=== PATIENT | female | born 1965 | race Caucasian/White ===

== ENCOUNTER 2018-01-24 22:54 | Emergency (ER) | END 2018-01-25 04:43 | disposition home or self-care (01) ==

== ENCOUNTER 2018-08-24 16:54 | Observation (INO) | payer OTHER ==
[~2018-08-24] VITALS: Ht 157.5 cm; Wt 83.5 kg
[~2018-08-24 16:54] MED LIST: IBUP-1542 PO
[2018-08-24] MEDS ORDERED: NITROGLYCERIN 2% 1 GM OINT PKT TD STA (17:30)
[2018-08-24] MEDS ORDERED: ASPIRIN 325 MG TAB PO STA (17:30)
[2018-08-24] MEDS ORDERED: morphine 4 MG/ML VIAL IV STA ×2 (17:30→21:50)
[2018-08-24] MEDS ORDERED: ONDANSETRON 4 MG INJ IV STA ×2 (17:30→21:50)
--- NOTE | 2018-08-24 21:29 | ERD ---
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 She states that she is having arrhythmia but uncertain etiology. She is seeing Dr. Thompson in the past for this and they have been unable to catch the rhythm. She had a cardiac work-up because she is having chest pain with her tachycardia. She says she had a treadmill stress test about a month and a half ago that was normal. She said that today however she had some substernal chest pressure with her tachycardia and she took a sublingual nitroglycerin x3 that did not relieve her pain. She says the pain was worse has been before and she is never had episodes where it did not go away with one nitro. She did not have a nuclear stress test she tells me or a cardiac cath ROS All systems reviewed and are negative except as per history of present illness. Medications Home Meds Reported Medications Ibuprofen* (Ibuprofen*) 600 Mg Tablet, 600 MG PO Q6H PRN for PAIN LEVEL 1-5, TAB 01/25/18 Allergies Allergies: Coded Allergies: No Known Allergy (Unverified , 01/25/18) PMhx/Soc Medical and Surgical Hx: pt denies Surgical Hx History of Surgery: No Anesthesia Reaction: No Hx Neurological Disorder: No Hx Respiratory Disorders: No Hx Cardiac Disorders: Yes (ARRYTHMIA) Hx Psychiatric Problems: No Hx Miscellaneous Medical Probl: No Hx Alcohol Use: Yes (social) Hx Substance Use: No Hx Tobacco Use: No Smoking Status: Never smoker FmHx Family History: No coronary disease Physical Exam Vitals Vital Signs Date Temp Pulse Resp B/P (MAP) Pulse Ox O2 O2 Flow FiO2 Time Delivery Rate 08/24/18 70 26 133/78 98 Room Air 18:42 (96) 08/24/18 Nasal 2 17:57 Cannula 08/24/18 99.1 81 18 165/79 99 17:00 (107) Physical Exam Const: Well-developed, well-nourished Head: Atraumatic, normocephalic Eyes: Normal Conjunctiva, PERRLA, EOMI, normal sclera, no nystagmus ENT: Normal External Ears, Nose and Mouth, moist mucus membranes. Neck: Full range of motion. No meningismus, no lymphadenopathy. Resp: Clear to auscultation bilaterally, no wheezing, rhonchi, rales Cardio: Regular rate and rhythm, no murmurs, S1 S2 present Abd: Soft, non tender x 4, non distended. Normal bowel sounds, no guarding or rebound, no pulsitile abdominal masses or bruits Skin: No petechiae or rashes, no ecchymosis , no maculopapular rash Back: No midline or flank tenderness Ext: No cyanosis, or edema, FROM x 4, normal inspection, neurovascularly intact x 4 Neur: Awake and alert, STR 5/5 x 4, sensation intact x 4, no focal findings, cerebellum intact Psych: Normal Mood and Affect Result Diagram: 08/24/18 1738 08/24/18 1738 Results 24 hrs Laboratory Tests Test 08/24/18 17:38 White Blood Count 8.1 10^3/ul Red Blood Count 4.53 10^6/ul Hemoglobin 12.2 g/dl Hematocrit 37.1 % Mean Corpuscular Volume 81.9 fl Mean Corpuscular Hemoglobin 26.9 pg Mean Corpuscular Hemoglobin Concent 32.9 g/dl Red Cell Distribution Width 13.8 % Platelet Count 278 10^3/UL Mean Platelet Volume 9.2 fl Immature Granulocytes % 0.200 % Neutrophils % 52.8 % Lymphocytes % 38.9 % Monocytes % 6.6 % Eosinophils % 0.9 % Basophils % 0.6 % Nucleated Red Blood Cells % 0.0 /100WBC Immature Granulocytes # 0.020 10^3/ul Neutrophils # 4.3 10^3/ul Lymphocytes # 3.2 10^3/ul Monocytes # 0.5 10^3/ul Eosinophils # 0.1 10^3/ul Basophils # 0.1 10^3/ul Nucleated Red Blood Cells # 0.0 10^3/ul Sodium Level 144 mmol/L Potassium Level 3.5 mmol/L Chloride Level 108 mmol/L Carbon Dioxide Level 25 mmol/L Anion Gap 11 Blood Urea Nitrogen 13 mg/dl Creatinine 0.68 mg/dl Est Glomerular Filtrat Rate mL/min > 60 mL/min Glucose Level 117 mg/dl Calcium Level 9.0 mg/dl Total Bilirubin 0.3 mg/dl Direct Bilirubin 0.00 mg/dl Indirect Bilirubin 0.3 mg/dl Aspartate Amino Transf (AST/SGOT) 25 IU/L Alanine Aminotransferase (ALT/SGPT) 25 IU/L Alkaline Phosphatase 106 IU/L Troponin I < 0.012 ng/ml B-Type Natriuretic Peptide 54 PG/ML Total Protein 7.9 g/dl Albumin 4.3 g/dl Globulin 3.60 g/dl Albumin/Globulin Ratio 1.19 Current Medications Medications Dose Sig/Farshad Start Time Status Last (Trade) Ordered Route PRN Stop Time Admin Dose Reason Admin Aspirin 325 mg ONCE STAT 08/24/18 DC 08/24/18 (Aspirin) PO 17:30 08/24/18 18:10 17:31 1 inch ONCE STAT 08/24/18 DC 08/24/18 Nitroglycerin TD 17:30 08/24/18 18:10 17:31 (Nitroglyceri n 2% Oint) Morphine 4 mg ONCE STAT 08/24/18 DC Sulfate IV 17:30 08/24/18 (morphine) 17:31 Ondansetron 4 mg ONCE STAT 08/24/18 DC HCl (Zofran IV 17:30 08/24/18 Inj) 17:31 Procedures/MDM EKG: Rate/Rhythm: Normal Sinus Rhythm,NL intervals QRS, ST, QT: NORMAL [place], QRS, QT] Impression: NORMAL EKG [place] [id number] Radiology Main Line: [phone] DIAGNOSTIC IMAGING REPORT Patient: RAMONE ARECHIGA : 1965 Age: 53 Sex: F MR #: [id number] DOS: 08/24/18 1730 Ordering MD: JEFFERY AYON DO Location: E/R Room/Bed: PROCEDURE: XR Chest AP portable CLINICAL INDICATION: Chest pain TECHNIQUE: An AP portable radiograph of the chest was submitted. COMPARISON: 01/25/2018 FINDINGS: Support Hardware: None Cardiovascular: The cardiovascular silhouette appears unremarkable. Lung Caraballo: The lung caraballo appear clear with no nodule, alveolar infiltrate, or interstitial prominence evident. Pleural Spaces: No pneumothorax or pleural effusion is identified. Osseous Structures: The osseous structures appear intact. Soft Tissues: The soft tissues appear generous. IMPRESSION: Stable and unremarkable portable chest. Christian Moore Physician Date Time Electronically viewed and signed by Christian Moore Physician on 08/24/2018 17:49 RH/ CC: JEFFERY AYON DO [id number] The patient is having worsening symptoms of angina with no relief with nitro. She had a negative treadmill stress test only , She is also getting more symptomatic. I will admit her to the hospital for cardiac work-up. Cardiac Admit MDM: Patient's symptoms are concerning for cardiac cause will require inpatient workup and continuous monitoring. Further w/u for ischemia, arrhythmia, PE or dissection will be deferred to the inpatient team. Departure Diagnosis: Primary Impression: Chest pain Chest pain type: unspecified Qualified Codes: R07.9 - Chest pain, unspecified Condition: Stable JEFFERY AYON DO Aug 24, 2018 21:29
[2018-08-24] MEDS ORDERED: ACETAMINOPHEN 325 MG TAB PO PRN ×2 (22:00)
[2018-08-24] MEDS ORDERED: DOCUSATE SODIUM 100 MG CAP PO PRN (22:00)
[2018-08-24] MEDS ORDERED: NACL 0.9% 3 ML SYG IV SCH (22:00)
[2018-08-24] MEDS ORDERED: MAGNESIUM HYDROXIDE 30ML CUP PO PRN (22:00)
[2018-08-24] MEDS ORDERED: morphine 2 MG INJ IV PRN (22:00)
[2018-08-24] MEDS ORDERED: HYDROCODONE/APAP (5/325) TAB PO PRN (22:00)
[2018-08-24] MEDS ORDERED: LORAZEPAM 2 MG INJ IV PRN (22:00)
[2018-08-24] MEDS ORDERED: NITROGLYCERIN (SL) 0.4 MG TAB SL PRN (22:00)
[2018-08-24] MEDS ORDERED: ALBUTEROL/IPRATROPIUM (NEB) 3 ML AMP HHN PRN (22:00)
[2018-08-24] MEDS ORDERED: ONDANSETRON 4 MG INJ IV PRN ×2 (22:00)
[2018-08-24] MEDS ORDERED: hydrALAzine 20 MG INJ IV PRN (22:00)
[2018-08-24 22:38] VITALS: PULSE 66
[2018-08-24 22:59] VITALS: Ht 157.5 cm; Wt 83.5 kg
[2018-08-24] MEDS: SOD CHLORIDE 0.45% 1,000 ML IV SCH (23:14)
[2018-08-25] VITALS (10 sets, daily range): BP systolic 109–127; BP diastolic 56–73; PULSE 57–86; RESP 17–19
--- NOTE | 2018-08-25 01:55 | HP ---
DATE OF ADMISSION: 08/24/2018 IDENTIFICATION: This is a 53-year-old female. CHIEF COMPLAINT: Chest pain and dizziness. 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 The patient states she has been having some chest pain, substernal in nature that occurred earlier today around noon. She believes she also had tachy cardia. She took a nitroglycerin at home x3, which did not relieve her symptoms. This pain seemed t o be worsened pain she has had in the past. No prior history of any stroke or heart attack. No pres ent upper or lower GI bleeding, nausea, vomiting, fevers or chills, diarrhea or constipation. She di d complain of some dizziness, but no loss of consciousness. Apparently as an outpatient with a cardi ologist, she had a cardiac workup because of her prior symptoms including stress test about a month a nd half ago that according to the patient was normal. PAST MEDICAL HISTORY: As above. ALLERGIES: NO KNOWN DRUG ALLERGIES. HOME MEDICATIONS: Ibuprofen 600 mg q.6 p.r.n., and nitroglycerin p.r.n. PAST SURGICAL HISTORY: Apparently none. SOCIAL HISTORY: Negative for smoking, drinking, or IV drug abuse. FAMILY HISTORY: Noncontributory. PHYSICAL EXAMINATION: VITAL SIGNS: T-max 99.1, pulse 70 to 81, respirations 18 to 26, blood pressure 165 to 133 systolic o melisa 79 to 78 diastolic. Satting at 98% room air. GENERAL: The patient is lying in bed, answering questions appropriately. No acute distress. HEENT: Pupils equal, round, reactive to light. Extraocular muscles intact. NECK: Supple, no thyromegaly. LUNGS: Clear to auscultation bilaterally. CARDIOVASCULAR: S1, S2 heard. No rubs or gallops. ABDOMEN: Soft, nontender, nondistended. Normal bowel sounds. No rebound or guarding. MUSCULOSKELETAL: No lower extremity edema bilaterally. NEUROLOGIC: No focal deficits. LABORATORIES: CBC is completely normal. Comprehensive metabolic panel is normal. Troponin is negat oanh x1. Chest x-ray did not show any acute findings. ASSESSMENT AND PLAN: A 53-year-old female coming in with chest pain symptoms, prior history of arrhy thmia and sees a environmental engineering technician as an outpatient. 1. Chest pain. Again, rule out for acute coronary syndrome versus other source such as possible. musculoskeletal source. The patient does have history of arrhythmia. So, we admit the patient and t rend her troponins q.6 hours x2 more. Put on aspirin, morphine, oxygen, nitroglycerin. Consider aneesh cking a 2D echocardiogram, get a cardiology consult, check TSH, A1c, lipid panel. 2. History of arrhythmia. The patient will be monitored on telemetry floor. Presently, heart rate is stable. 3. Deep venous thrombosis prophylaxis, heparin subcutaneously. Dictated By: GERRI TRAVIS/VANESSA Conf#: [id number] DID#: [id number]
[2018-08-25] MEDS ORDERED: POTASSIUM CHLORIDE (SR) 20 MEQ TAB PO STA (09:01)
[2018-08-25] MEDS: HEPARIN 5,000 UNIT/1 ML VIAL SC SCH ×2 (09:02→21:17)
[2018-08-25] MEDS: ASPIRIN (EC) 325 MG TAB PO SCH (09:05)
[2018-08-25] MEDS: SOD CHLORIDE 0.45% 1,000 ML IV SCH (11:29)
--- NOTE | 2018-08-25 13:43 | PN ---
Date/Time of Note Date/Time of Note DATE: 08/25/18 TIME: 13:39 Assessment/Plan VTE Prophylaxis Risk score (from [facility])>0 risk: 2 SCD applied (from [facility]): Yes Pharmacological prophylaxis: NA/contraindicated Pharm contraindication: low risk/ambulating Lines/Catheters IV [facility] Peripheral IV Assessment/Plan Assessment/Plan 1. Acute chest pain - serial troponins negative - followed by Dr. Thompson as outpatient and consultation placed - ECHO ordered 2. h/o arrhythmia - current in sinus rhythm 3. hypokalemia - replaced 4. Headache - appears positional - supportive care 5. Disposition - Pending cardiology consultation. Plan of care based on improvement of symptoms and cardiology recommendations. Result Diagram: 08/25/1842908/25/18429 Results 24hrs Laboratory Tests Test 08/24/18 17:38 08/24/18 22:00 08/25/18 04:30 White Blood Count 8.1 8.2 Red Blood Count 4.53 4.01 L Hemoglobin 12.2 10.6 L Hematocrit 37.1 33.2 L Mean Corpuscular Volume 81.9 L 82.8 Mean Corpuscular Hemoglobin 26.9 L 26.4 L Mean Corpuscular Hemoglobin Concent 32.9 31.9 L Red Cell Distribution Width 13.8 14.0 Platelet Count 278 254 Mean Platelet Volume 9.2 9.4 Immature Granulocytes % 0.200 0.400 Neutrophils % 52.8 52.6 Lymphocytes % 38.9 38.3 Monocytes % 6.6 6.8 Eosinophils % 0.9 1.3 Basophils % 0.6 0.6 Nucleated Red Blood Cells % 0.0 0.0 Immature Granulocytes # 0.020 0.030 Neutrophils # 4.3 4.3 Lymphocytes # 3.2 H 3.1 H Monocytes # 0.5 0.6 Eosinophils # 0.1 0.1 Basophils # 0.1 0.1 Nucleated Red Blood Cells # 0.0 0.0 Sodium Level 144 140 Potassium Level 3.5 3.5 Chloride Level 108 108 Carbon Dioxide Level 25 25 Anion Gap 11 7 Blood Urea Nitrogen 13 11 Creatinine 0.68 0.66 Est Glomerular Filtrat Rate mL/min > 60 > 60 Glucose Level 117 92 Calcium Level 9.0 8.7 Total Bilirubin 0.3 Direct Bilirubin 0.00 Indirect Bilirubin 0.3 Aspartate Amino Transf (AST/SGOT) 25 Alanine Aminotransferase (ALT/SGPT) 25 Alkaline Phosphatase 106 Troponin I < 0.012 < 0.012 < 0.012 B-Type Natriuretic Peptide 54 Total Protein 7.9 Albumin 4.3 Globulin 3.60 H Albumin/Globulin Ratio 1.19 Creatine Kinase 39 33 Creatine Kinase Index 0.6 0.7 Creatinine Kinase MB (Mass) < 0.22 < 0.22 Free Thyroxine 1.06 Hemoglobin A1c 5.6 Phosphorus Level 4.2 Magnesium Level 2.2 Triglycerides Level 274 H Cholesterol Level 173 LDL Cholesterol, Calculated 83 HDL Cholesterol 35 L Cholesterol/HDL Ratio 4.9 Thyroid Stimulating Hormone (TSH) 3.900 Subjective 24 Hr Interval Summary Free Text/Dictation Patient states her chest pain has improved since admission. Complaining of discomfort occipital area but does get relief when changes positions. Also with discomfort at site of IV insertion in L hand. Exam/Review of Systems Exam Vitals Vital Signs Date Temp Pulse Resp B/P (MAP) Pulse Ox O2 O2 Flow FiO2 Time Delivery Rate 08/25/18 98.0 73 18 121/60 98 12:31 (80) 08/24/18 Room Air 21:42 08/24/18 2 17:57 Intake and Output 08/24/18 08/24/18 08/25/18 1515:00 23:00 07:00 IntakeIntake Total 640 ml BalanceBalance 640 ml Exam General: no acute distress. answering questions appropriately Neck: supple Chest: nontender CVS: S1, S2, regular rate and rhythm. no murmurs Lungs: clear to auscultation bilaterally. no wheezing or rhonchi Abd: soft, nontender, nondistended. no rebound or guarding. bowel sounds present diffusely Ext: moving all extremities. no cyanosis, clubbing, or edema Results Results 24hrs Laboratory Tests Test 08/24/18 17:38 08/24/18 22:00 08/25/18 04:30 White Blood Count 8.1 8.2 Red Blood Count 4.53 4.01 L Hemoglobin 12.2 10.6 L Hematocrit 37.1 33.2 L Mean Corpuscular Volume 81.9 L 82.8 Mean Corpuscular Hemoglobin 26.9 L 26.4 L Mean Corpuscular Hemoglobin Concent 32.9 31.9 L Red Cell Distribution Width 13.8 14.0 Platelet Count 278 254 Mean Platelet Volume 9.2 9.4 Immature Granulocytes % 0.200 0.400 Neutrophils % 52.8 52.6 Lymphocytes % 38.9 38.3 Monocytes % 6.6 6.8 Eosinophils % 0.9 1.3 Basophils % 0.6 0.6 Nucleated Red Blood Cells % 0.0 0.0 Immature Granulocytes # 0.020 0.030 Neutrophils # 4.3 4.3 Lymphocytes # 3.2 H 3.1 H Monocytes # 0.5 0.6 Eosinophils # 0.1 0.1 Basophils # 0.1 0.1 Nucleated Red Blood Cells # 0.0 0.0 Sodium Level 144 140 Potassium Level 3.5 3.5 Chloride Level 108 108 Carbon Dioxide Level 25 25 Anion Gap 11 7 Blood Urea Nitrogen 13 11 Creatinine 0.68 0.66 Est Glomerular Filtrat Rate mL/min > 60 > 60 Glucose Level 117 92 Calcium Level 9.0 8.7 Total Bilirubin 0.3 Direct Bilirubin 0.00 Indirect Bilirubin 0.3 Aspartate Amino Transf (AST/SGOT) 25 Alanine Aminotransferase (ALT/SGPT) 25 Alkaline Phosphatase 106 Troponin I < 0.012 < 0.012 < 0.012 B-Type Natriuretic Peptide 54 Total Protein 7.9 Albumin 4.3 Globulin 3.60 H Albumin/Globulin Ratio 1.19 Creatine Kinase 39 33 Creatine Kinase Index 0.6 0.7 Creatinine Kinase MB (Mass) < 0.22 < 0.22 Free Thyroxine 1.06 Hemoglobin A1c 5.6 Phosphorus Level 4.2 Magnesium Level 2.2 Triglycerides Level 274 H Cholesterol Level 173 LDL Cholesterol, Calculated 83 HDL Cholesterol 35 L Cholesterol/HDL Ratio 4.9 Thyroid Stimulating Hormone (TSH) 3.900 Medications Medication Current Medications IV Flush (NS 3 ml) 3 ml PER PROTOCOL IV ; Start 08/24/18 at 22:00 Ondansetron HCl (Zofran Inj) 4 mg Q6H PRN IV NAUSEA/VOMITING; Start 08/24/18 at 22:00 Acetaminophen (Tylenol Tab) 650 mg Q6H PRN PO .PAIN 1-3 OR TEMP; Start 08/24/18 at 22:00 Acetaminophen/ Hydrocodone Bitart ([place] (5/325)) 1 tab Q6H PRN PO .MOD PAIN 4- 6; Start 08/24/18 at 22:00 Morphine Sulfate (morphine) 2 mg Q4H PRN IV .SEVERE PAIN 7-10 Last administered on 08/25/18 09:13; Admin Dose 2 MG; Start 08/24/18 at 22:00 Docusate Sodium (Colace) 100 mg Q12H PRN PO .CONSTIPATION; Start 08/24/18 at 22:00 Magnesium Hydroxide (Milk Of Mag) 30 ml DAILY PRN PO .CONSTIPATION; Start 08/24 at 22:00 Heparin Sodium (Porcine) (Heparin (5000 Units/1ml)) 5,000 unit Q12 SC Last administered on 08/25/18at 09:02; Admin Dose 5,000 UNIT; Start 08/25/18 at 09:00 Sodium Chloride 1,000 ml @ 75 mls/hr [id number] IV Last administered on 08/25/18at 11:29; Admin Dose 75 MLS/HR; Start 08/24/18 at 21:40 Lorazepam (Ativan) 0.5 mg Q6H PRN IV ANXIETY; Start 08/24/18 at 22:00 Albuterol/ Ipratropium (Duoneb) 3 ml Q4H RESP THERAPY PRN HHN SHORTNESS OF BREATH; Start 08/24/18 at 22:00 Hydralazine HCl (Apresoline) 10 mg Q6H PRN IV ELEVATED BLOOD PRESSURE; Start 08/24/18 at 22:00 Clonidine (Catapres) 0.1 mg Q6H PRN PO ELEVATED BLOOD PRESSURE; Start 08/24/18 at 22:00 Nitroglycerin (Nitroglycerin (Sl Tab) 0.4 Mg) 1 tab Q5M PRN SL ANGINA; Start 08/24/18 at 22:00 Aspirin (Ecotrin) 325 mg DAILY PO Last administered on 08/25/18at 09:05; Admin Dose 325 MG; Start 08/25/18 at 09:00 SOLO VALENCIA MD Aug 25, 2018 13:43
--- NOTE | 2018-08-25 14:23 | CONS ---
DATE OF ADMISSION: 08/24/2018 DATE OF CONSULTATION: 08/25/2018 TYPE OF CONSULTATION: Cardiology. REASON FOR CONSULTATION: Chest pain, assess for acute coronary syndrome. REQUESTING PHYSICIAN: Gerri Srinivasan MD, from the hospitalist service. HISTORY OF PRESENT ILLNESS: Ms. Mendez is a 53-year-old female with history of palpitations, known to myself as an office patient who presents with complaints of substernal chest pain describes as pre ssure-like sensation occurring at rest as well as with exertion for full day prior to admit associate d dizziness and some radiation of chest pain into her arm. Upon arrival in the emergency department, temperature of 99.1, blood pressure is 165/79, pulse 81, respiratory rate 18, satting 99%. The asael ent's labs showed white blood cell count of 8.1, hemoglobin 12.2, platelet count of 278, sodium of 14 4, potassium 3.5, creatinine of 0.6, BUN 13, BNP of 54, TSH of 3.9, LDL 83, HDL 35. The patient unde rwent a chest x-ray revealing stable unremarkable portable chest. The patient's electrocardiogram re vealed a sinus rhythm rate of 78, normal axis with inferior lead T-wave flattening. The patient was treated with Tylenol, Zofran and potassium repletion. She has been admitted to the floor. Since admi t to floor, the patient was monitored on telemetry revealing sinus rhythm, no significant arrhythmias or pauses. The patient has had labile blood pressure up to as high as 165 and as low as 97 the same day this morning of 109/56. PAST MEDICAL HISTORY: As above in HPI. MEDICATIONS CURRENTLY IN HOSPITAL: 1. Heparin 5000 subQ q.12. 2. Aspirin 325 mg daily. 3. Zofran p.r.n. 4. Tylenol p.r.n. 5. [place] p.r.n. 6. Colace p.r.n. 7. Ativan. 8. DuoNeb. 9. Clonidine 0.1 q.6 p.r.n. 10. Sublingual nitroglycerin p.r.n. 11. IV fluid hydration of 75 mL an hour. ALLERGIES: NO KNOWN DRUG ALLERGIES. SOCIAL HISTORY: No current tobacco, EtOH or illicit drug use. FAMILY HISTORY: No history of sudden cardiac or early CAD. REVIEW OF SYSTEMS: As above in HPI. CONSTITUTIONAL: No fevers, chills. PULMONARY: No current shortness of breath. CARDIOVASCULAR: Intermittent chest pain. GASTROINTESTINAL: No vomiting. GENITOURINARY: No hematuria. MUSCULOSKELETAL: Degenerative joint disease. PSYCHIATRIC: The patient denies depression. NEUROLOGIC: No documented history of CVA. PHYSICAL EXAMINATION VITAL SIGNS: Temperature 98, blood pressure 109/56, pulse 68, respiration 18, satting 98%. GENERAL: The patient is alert, awake, in no acute distress. NECK: JVP is approximately 8 to 9 cm of water. CHEST: Fair air movement throughout. HEART: Regular rate and rhythm. Normal S1, S2, I/ systolic murmur, nondisplaced PMI. ABDOMEN: Positive bowel sounds, soft. EXTREMITIES: No edema, 1+ pulses bilateral posterior tibial. LABORATORIES: As above in HPI with most recently from today: Sodium 140, potassium 3.5, creatinine 0.6, BUN 11. White blood cell count 8.2, hemoglobin 10.6, platelet count of 254. IMAGING STUDIES: As above in HPI. No further imaging studies for my review at this time. ELECTROCARDIOGRAM: As above in HPI. No further electrocardiograms for my review at this time. IMPRESSION: 1. Chest pain, assess for acute coronary syndrome, somewhat atypical symptomatology with no signific ant cardiac risk factors at this time. 2. Abnormal electrocardiogram with T-wave flattening. 3. Hypertension, very labile at this time. 4. History of palpitations. 5. Dizziness. Rule out cerebrovascular accident. RECOMMENDATIONS: 1. At this time, we would maintain the patient on telemetry monitoring to rule out any possible rhyt hmic causes to the patient's dizziness. We would check orthostatics given the patient's labile blood pressures to rule out possible orthostasis causing patient's dizziness. 2. We would complete the patient's rule out for myocardial infarction, thus send 1 final troponin. 3. Check 2D echo for this patient's ejection fraction, wall motion, rule out major valve abnormaliti es. 4. We will consider possible cardiac stress test in this patient to further evaluate possibility of significant obstructive coronary symptoms lending to symptoms of chest pain and subsequent admit to [facility]. Thank you for allowing me to take part in the care of this patient. I will continue to follow her ve ry closely with you with further recommendations will be made pressure through her inpatient hospital clinical course. Dictated By: TIN WILSON/VANESSA Conf#: [id number] DID#: [id number] CC: SOLO VALENCIA MD; GERRI SRINIVASAN;*EndCC*
[2018-08-26] VITALS (8 sets, daily range): BP systolic 105–114; BP diastolic 53–73; PULSE 63–84; RESP 18
[2018-08-26] MEDS: SOD CHLORIDE 0.45% 1,000 ML IV SCH (02:02)
[2018-08-26] MEDS: ASPIRIN (EC) 325 MG TAB PO SCH (08:04)
[2018-08-26] MEDS: HEPARIN 5,000 UNIT/1 ML VIAL SC SCH (08:06)
--- NOTE | 2018-08-26 09:17 | CONS ---
Consult Date/Type/Reason Admit Date/Time Aug 24, 2018 at 21:31 Initial Consult Date Date/Time of Note DATE: 08/26/18 TIME: 09:16 Subjective NO acute events - pt comfortable - Stress test today at 10 am ROS: No fever, no chills, no nausea, no vomiting, no diarrhea/constipation No recent weight changes No chest pain, no PND, no orthopnea No dizziness, blurred vision No thirst, no heat or cold intolerance Objective Vitals Vital Signs Date Temp Pulse Resp B/P (MAP) Pulse Ox O2 O2 Flow FiO2 Time Delivery Rate 08/26/18 69 08:03 08/26/18 98.0 18 112/73 98 07:30 (86) 08/24/18 Room Air 21:42 08/24/18 2 17:57 Intake and Output 08/25/18 08/25/18 08/26/18 1515:00 23:00 07:00 IntakeIntake Total 250 ml 600 ml 1300 ml BalanceBalance 250 ml 600 ml 1300 ml Exam General: WN/WD/NAD, AOx 3 HEENT: Unicetric/atraumatic/EOMI ( follow commands) NECK: JVD elevated, no thyromegaly Lymph: no lymphadenopathy HEART: regular with no S3, II/ systolic murmur at apex LUNGS: Coarse sounds ABD: soft, NT, ND, +BS : Intact Neuro: non focal SKIN: chronic changes EXT: trace edema Results/Medications Result Diagram: 08/26/18 0507 08/26/18 0507 Results 24 hrs Laboratory Tests Test 08/25/18 14:03 08/26/18 05:07 Troponin I < 0.012 White Blood Count 7.0 Red Blood Count 4.39 Hemoglobin 11.4 L Hematocrit 36.0 L Mean Corpuscular Volume 82.0 Mean Corpuscular Hemoglobin 26.0 L Mean Corpuscular Hemoglobin Concent 31.7 L Red Cell Distribution Width 14.0 Platelet Count 270 Mean Platelet Volume 9.5 Immature Granulocytes % 0.400 Neutrophils % 53.6 Lymphocytes % 37.3 Monocytes % 7.1 Eosinophils % 1.0 Basophils % 0.6 Nucleated Red Blood Cells % 0.0 Immature Granulocytes # 0.030 Neutrophils # 3.8 Lymphocytes # 2.6 Monocytes # 0.5 Eosinophils # 0.1 Basophils # 0.0 Nucleated Red Blood Cells # 0.0 Sodium Level 143 Potassium Level 4.0 Chloride Level 108 Carbon Dioxide Level 27 Anion Gap 8 Blood Urea Nitrogen 11 Creatinine 0.75 Est Glomerular Filtrat Rate mL/min > 60 Glucose Level 102 Calcium Level 8.6 Home Meds Reported Medications Ibuprofen* (Ibuprofen*) 600 Mg Tablet, 600 MG PO Q6H PRN for PAIN LEVEL 1-5, TAB 01/25/18 Medications Current Medications IV Flush (NS 3 ml) 3 ml PER PROTOCOL IV ; Start 08/24/18 at 22:00 Ondansetron HCl (Zofran Inj) 4 mg Q6H PRN IV NAUSEA/VOMITING; Start 08/24/18 at 22:00 Acetaminophen (Tylenol Tab) 650 mg Q6H PRN PO .PAIN 1-3 OR TEMP; Start 08/24/18 at 22:00 Acetaminophen/ Hydrocodone Bitart ([place] (5/325)) 1 tab Q6H PRN PO .MOD PAIN 4- 6; Start 08/24/18 at 22:00 Morphine Sulfate (morphine) 2 mg Q4H PRN IV .SEVERE PAIN 7-10 Last administered on 08/25/18at 09:13; Admin Dose 2 MG; Start 08/24/18 at 22:00 Docusate Sodium (Colace) 100 mg Q12H PRN PO .CONSTIPATION; Start 08/24/18 at 22:00 Magnesium Hydroxide (Milk Of Mag) 30 ml DAILY PRN PO .CONSTIPATION; Start 08/24/18 at 22:00 Heparin Sodium (Porcine) (Heparin (5000 Units/1ml)) 5,000 unit Q12 SC Last administered on 08/25/18at 21:17; Admin Dose 5,000 UNIT; Start 08/25/18 at 09:00 Sodium Chloride 1,000 ml @ 75 mls/hr [id number] IV Last administered on 08/26/18at 02:02; Admin Dose 75 MLS/HR; Start 08/24/18 at 21:40 Lorazepam (Ativan) 0.5 mg Q6H PRN IV ANXIETY; Start 08/24/18 at 22:00 Albuterol/ Ipratropium (Duoneb) 3 ml Q4H RESP THERAPY PRN HHN SHORTNESS OF B REATH; Start 08/24/18 at 22:00 Hydralazine HCl (Apresoline) 10 mg Q6H PRN IV ELEVATED BLOOD PRESSURE; Start 08/24/18 at 22:00 Clonidine (Catapres) 0.1 mg Q6H PRN PO ELEVATED BLOOD PRESSURE; Start 08/24/18 at 22:00 Nitroglycerin (Nitroglycerin (Sl Tab) 0.4 Mg) 1 tab Q5M PRN SL ANGINA; Start 08/24/18 at 22:00 Aspirin (Ecotrin) 325 mg DAILY PO Last administered on 08/26/18at 08:04; Admin Dose 325 MG; Start 08/25/18 at 09:00 Assessment/Plan Hospital Course (Demo Recall) 1. Chest pain, assess for acute coronary syndrome, somewhat atypical symptomatology with no significant cardiac risk factors at this time - stress test today. 2. Abnormal electrocardiogram with T-wave flattening - r/o [place] - no arrhythmia on tele. 3. Hypertension, very labile at this time - improved with therapy. 4. History of palpitations - now in sinis. 5. Dizziness. Rule out cerebrovascular accident. Primary team follows. LAMONTE FORDE MD Aug 26, 2018 09:17
[2018-08-26] MEDS ORDERED: REGADENOSON 0.4 MG/5 ML SYG ONE (09:43)
--- NOTE | 2018-08-26 13:47 | PN ---
Date/Time of Note Date/Time of Note DATE: 08/26/18 TIME: 13:43 Assessment/Plan VTE Prophylaxis Risk score (from Ns)>0 risk: 1 SCD applied (from Ns): Yes Pharmacological prophylaxis: NA/contraindicated Pharm contraindication: low risk/ambulating Lines/Catheters IV Catheter Type (from Nrsg): Peripheral IV Assessment/Plan Assessment/Plan 1. Acute chest pain- improving - serial troponins negative - Cardiology consultation appreciated and stress test this am - ECHO pending 2. h/o arrhythmia - current in sinus rhythm 3. Headache - Tylenol PRN 4. Disposition - Stress test this am and when cleared by Cardio, will d/c home Result Diagram: 08/26/18 0507 08/26/18 0507 Results 24hrs Laboratory Tests Test 08/25/18 14:03 08/26/18 05:07 Troponin I < 0.012 White Blood Count 7.0 Red Blood Count 4.39 Hemoglobin 11.4 L Hematocrit 36.0 L Mean Corpuscular Volume 82.0 Mean Corpuscular Hemoglobin 26.0 L Mean Corpuscular Hemoglobin Concent 31.7 L Red Cell Distribution Width 14.0 Platelet Count 270 Mean Platelet Volume 9.5 Immature Granulocytes % 0.400 Neutrophils % 53.6 Lymphocytes % 37.3 Monocytes % 7.1 Eosinophils % 1.0 Basophils % 0.6 Nucleated Red Blood Cells % 0.0 Immature Granulocytes # 0.030 Neutrophils # 3.8 Lymphocytes # 2.6 Monocytes # 0.5 Eosinophils # 0.1 Basophils # 0.0 Nucleated Red Blood Cells # 0.0 Sodium Level 143 Potassium Level 4.0 Chloride Level 108 Carbon Dioxide Level 27 Anion Gap 8 Blood Urea Nitrogen 11 Creatinine 0.75 Est Glomerular Filtrat Rate mL/min > 60 Glucose Level 102 Calcium Level 8.6 Subjective 24 Hr Interval Summary Free Text/Dictation Patient complaining of headache following stress test. No acute overnight events. Exam/Review of Systems Exam Vitals Vital Signs Date Temp Pulse Resp B/P (MAP) Pulse Ox O2 O2 Flow FiO2 Time Delivery Rate 08/26/18 98.0 67 18 108/53 98 12:15 (71) 08/24/18 Room Air 21:42 08/24/18 2 17:57 Intake and Output 08/25/18 08/25/18 08/26/18 1515:00 23:00 07:00 IntakeIntake Total 250 ml 600 ml 1300 ml BalanceBalance 250 ml 600 ml 1300 ml Exam General: no acute distress. answering questions appropriately Neck: supple CVS: S1, S2, regular rate and rhythm. no murmurs Lungs: clear to auscultation bilaterally. no wheezing or rhonchi Abd: soft, nontender, nondistended. no rebound or guarding. bowel sounds present diffusely Ext: moving all extremities. no cyanosis, clubbing, or edema Results Results 24hrs Laboratory Tests Test 08/25/18 14:03 08/26/18 05:07 Troponin I < 0.012 White Blood Count 7.0 Red Blood Count 4.39 Hemoglobin 11.4 L Hematocrit 36.0 L Mean Corpuscular Volume 82.0 Mean Corpuscular Hemoglobin 26.0 L Mean Corpuscular Hemoglobin Concent 31.7 L Red Cell Distribution Width 14.0 Platelet Count 270 Mean Platelet Volume 9.5 Immature Granulocytes % 0.400 Neutrophils % 53.6 Lymphocytes % 37.3 Monocytes % 7.1 Eosinophils % 1.0 Basophils % 0.6 Nucleated Red Blood Cells % 0.0 Immature Granulocytes # 0.030 Neutrophils # 3.8 Lymphocytes # 2.6 Monocytes # 0.5 Eosinophils # 0.1 Basophils # 0.0 Nucleated Red Blood Cells # 0.0 Sodium Level 143 Potassium Level 4.0 Chloride Level 108 Carbon Dioxide Level 27 Anion Gap 8 Blood Urea Nitrogen 11 Creatinine 0.75 Est Glomerular Filtrat Rate mL/min > 60 Glucose Level 102 Calcium Level 8.6 Medications Medication Current Medications IV Flush (NS 3 ml) 3 ml PER PROTOCOL IV ; Start 08/24/18 at 22:00 Ondansetron HCl (Zofran Inj) 4 mg Q6H PRN IV NAUSEA/VOMITING; Start 08/24/18 at 22:00 Acetaminophen (Tylenol Tab) 650 mg Q6H PRN PO .PAIN 1-3 OR TEMP; Start 08/24/18 at 22:00 Acetaminophen/ Hydrocodone Bitart ([place] (5/325)) 1 tab Q6H PRN PO .MOD PAIN 4- 6; Start 08/24/18 at 22:00 Morphine Sulfate (morphine) 2 mg Q4H PRN IV .SEVERE PAIN 7-10 Last administered on 08/25/18at 09:13; Admin Dose 2 MG; Start 08/24/18 at 22:00 Docusate Sodium (Colace) 100 mg Q12H PRN PO .CONSTIPATION; Start 08/24/18 at 22:00 Magnesium Hydroxide (Milk Of Mag) 30 ml DAILY PRN PO .CONSTIPATION; Start 08/24/18 at 22:00 Heparin Sodium (Porcine) (Heparin (5000 Units/1ml)) 5,000 unit Q12 SC Last administered on 08/25/18at 21:17; Admin Dose 5,000 UNIT; Start 08/25/18 at 09:00 Lorazepam (Ativan) 0.5 mg Q6H PRN IV ANXIETY; Start 08/24/18 at 22:00 Albuterol/ Ipratropium (Duoneb) 3 ml Q4H RESP THERAPY PRN HHN SHORTNESS OF BREATH; Start 08/24/18 at 22:00 Hydralazine HCl (Apresoline) 10 mg Q6H PRN IV ELEVATED BLOOD PRESSURE; Start 08/24/18 at 22:00 Clonidine (Catapres) 0.1 mg Q6H PRN PO ELEVATED BLOOD PRESSURE; Start 08/24/18 at 22:00 Nitroglycerin (Nitroglycerin (Sl Tab) 0.4 Mg) 1 tab Q5M PRN SL ANGINA; Start 08/24/18 at 22:00 Aspirin (Ecotrin) 325 mg DAILY PO Last administered on 08/26/18at 08:04; Admin Dose 325 MG; Start 08/25/18 at 09:00 SOLO VALENCIA MD Aug 26, 2018 13:47
--- NOTE | 2018-08-26 13:54 | PDOCDIS ---
Discharge Instructions DIAGNOSIS Discharge Diagnosis 1. Acute chest pain, resolved 2. h/o arrhythmia 3. hypokalemia- resolved 4. Headache CONDITION [id number] Patient Condition: [id number] Stable HOME CARE INSTRUCTIONS: [id number] Diet Instructions: [id number] Low Fat /Cholesterol ACTIVITY: [id number] Activity Restrictions: [id number] No Restrictions FOLLOW UP/APPOINTMENTS Follow-up Plan 1. Follow up with your primary care physician in 1-2 weeks 2. Follow up with your Golf Club Weighter in 2 weeks 3. Make sure to avoid fatty, greasy foods since your triglycerides are slightly high 4. If you experiencing any concerning symptoms. please go to the nearest emergency department SOLO VALENCIA MD Aug 26, 2018 13:53
--- NOTE | 2018-08-26 14:57 | DS ---
Date/Time of Note Date/Time of Note DATE: 08/26/18 TIME: 14:57 Discharge Summary Admission/Discharge Info Admit Date/Time Aug 24, 2018 at 21:31 Discharge Date/Time 08/26/18 Discharge Diagnosis 1. Acute chest pain, resolved 2. h/o arrhythmia 3. hypokalemia- resolved 4. Headache Patient Condition: Stable Consults Cardiology- Dr. Thompson Procedures PROCEDURE: Lexiscan myocardial perfusion study CLINICAL INDICATION: 53 -year-old patient complaining of chest pain. TECHNIQUE: Lexiscan 0.4 mg intravenously separate acquisition gated myocardial perfusion SPECT using Tc 99m Myoview 32.2 mCi intravenously at stress and Tc-99m Myoview, 10.2 mCi intravenously at rest was performed using the rest/stress sequence. Poststress Myoview SPECT images were obtained in the supine position. COMPARISON: No prior studies. FINDINGS: Perfusion images reveal a small size mild to moderate in degree nonreversible perfusion abnormality in the inferior wall, which is likely related to soft tissue attenuation. Lexiscan post stress gated SPECT images demonstrate no wall motion abnormalities. IMPRESSION: 1. No evidence of stress-induced ischemia. 2. No wall motion abnormalities. 3. The left ventricle ejection fraction at stress is greater than 70%. A call report was made to Dr. Monroe on September 03, 2018 12:25 p.m. 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 The patient states she has been having some chest pain, substernal in nature that occurred earlier today around noon. She believes she also had tachycardia. She took a nitroglycerin at home x3, which did not relieve her symptoms. This pain seemed to be worsened pain she has had in the past. No prior history of any stroke or heart attack. No present upper or lower GI bleeding, nausea, vomiting, fevers or chills, diarrhea or constipation. She did complain of some dizziness, but no loss of consciousness. Apparently as an outpatient with a scraper operator, she had a cardiac workup because of her prior symptoms including stress test about a month and half ago that according to the patient was normal. Hospital Course Patient was admitted to telemetry for chest pain work up. Serial troponins were negative and stress test was negative for acute ischemic events. Patients presenting symptoms improved and discussed need for loop recorder given palpitations and questionable arrhythmia. Patient plans to follow up with cardiology as outpatient as approval process for recorder is currently pending. Patient was able to tolerate PO intake, ambulate without any issues, and vitals remained stable. Patient was discharged home in stable condition. Home Meds Reported Medications Ibuprofen* (Ibuprofen*) 600 Mg Tablet, 600 MG PO Q6H PRN for PAIN LEVEL 1-5, TAB 01/25/18 Follow-up Plan 1. Follow up with your primary care physician in 1-2 weeks 2. Follow up with your Donor Center Technician in 2 weeks 3. Make sure to avoid fatty, greasy foods since your triglycerides are slightly high 4. If you experiencing any concerning symptoms. please go to the nearest emergency department Primary Care Provider [facility] Time spent on discharge: > 30 minutes Pending Labs Laboratory Tests Test 08/26/18 05:07 White Blood Count 7.0 10^3/ul (4.8-10.8) Red Blood Count 4.39 10^6/ul (4.20-5.40) Hemoglobin 11.4 g/dl (12.0-16.0) Hematocrit 36.0 % (37.0-47.0) Mean Corpuscular Volume 82.0 fl (82.0-101.0) Mean Corpuscular Hemoglobin 26.0 pg (29.0-33.0) Mean Corpuscular Hemoglobin Concent 31.7 g/dl (32.0-37.0) Red Cell Distribution Width 14.0 % (11.5-14.5) Platelet Count 270 10^3/UL (140-415) Mean Platelet Volume 9.5 fl (7.4-10.4) Immature Granulocytes % 0.400 % (0.001-0.429) Neutrophils % 53.6 % (39.0-77.0) Lymphocytes % 37.3 % (15.0-51.0) Monocytes % 7.1 % (0.0-11.0) Eosinophils % 1.0 % (0.0-7.0) Basophils % 0.6 % (0.0-2.0) Nucleated Red Blood Cells % 0.0 /100WBC (0.0-0.0) Immature Granulocytes # 0.030 10^3/ul (0.0-0.031) Neutrophils # 3.8 10^3/ul (1.6-7.5) Lymphocytes # 2.6 10^3/ul (0.8-2.9) Monocytes # 0.5 10^3/ul (0.3-0.9) Eosinophils # 0.1 10^3/ul (0.0-0.5) Basophils # 0.0 10^3/ul (0.0-0.1) Nucleated Red Blood Cells # 0.0 10^3/ul (0.0-0.0) Sodium Level 143 mmol/L (135-144) Potassium Level 4.0 mmol/L (3.5-5.1) Chloride Level 108 mmol/L (97-110) Carbon Dioxide Level 27 mmol/L (21-31) Anion Gap 8 (5-13) Blood Urea Nitrogen 11 mg/dl (7-20) Creatinine 0.75 mg/dl (0.44-1.00) Est Glomerular Filtrat Rate mL/min > 60 mL/min (>60) Glucose Level 102 mg/dl (70-220) Calcium Level 8.6 mg/dl (8.4-10.2) SOLO VALENCIA MD Aug 26, 2018 14:57
--- NOTE | 2018-08-26 15:01 | RADRPT ---
Echocardiogram Report Patient Name: RAMONE ARECHIGAPatient ID: [id number] : 1965 (53y 3m)Study Date: 08/25/2018 9:20:09 AM Gender: FAccession #: [id number] Tech: Catalino Wright [facility] Location: [address] Ref.Physician: GERRI SRINIVASAN Height(Cm): BSA: Weight(Kg): Quality: Technically Difficult StudyOrder Physician: GERRI SRINIVASAN Account #: Procedures: Echocardiographic Report: Transthoracic echocardiogram with complete 2D, M-Mode, and doppler examination. Indications: Chest Pain. Measurements: 2D/M Mode Doppler Measurement Value Normal Range Measurement Value Normal Range LVIDd 2D 4.0 [ 3.8 - 5.2 ] cm AV Peak [place] 1.5 [ 100.0 - 170.0 ] cm/sec LVIDs 2D 2.5 [ 2.2 - 3.5 ] cm AV Peak PG 8.0 [ 2.0 - 9.0 ] mmHg LVPWd 2D 0.8 [ 0.6 - 0.9 ] cm LVOT Peak [place] 0.9 [ 70.0 - 110.0 ] cm/sec IVSd 2D 1.0 [ 0.6 - 0.9 ] cm LVOT Peak PG 3.0 [ 2.0 - 6.0 ] mmHg AoR Diam 2D 2.4 [ 2.3 - 3.1 ] cm MV E Peak [place] 0.8 [ 60.0 - 130.0 ] cm/sec EDV 2D 69.2 [ 46.0 - 106.0 ] ml MV A Peak [place] 0.6 [ 100.0 - 120.0 ] cm/sec ESV 2D 22.8 [ 14.0 - 42.0 ] ml MV E/A 1.2 [ 0.8 - 1.5 ] ratio EF 2D 67.1 [ 54.0 - 74.0 ] percent MV Decel Time 201 [ 104 - 258 ] msec LA Dimen 2D 3.3 [ 2.7 - 3.8 ] cm Lat E` [place] 0.1 [ 10.0 - 15.0 ] cm/sec Lateral E/E` 7.1 [ 1.0 - 2.0 ] ratio MV E/A 1.2 [ 0.8 - 1.5 ] ratio TR Peak [place] 2.0 [ 100.0 - 280.0 ] cm/sec TR Peak PG 16.0 mmHg RVSP 19.0 [ 10.0 - 36.0 ] mmHg Findings: Left Ventricle: Normal left ventricular systolic function. Normal left ventricular cavity size. Normal left ventricular wall thickness. Ejection fraction is visually estimated at 60 %. Tissue Doppler/Mitral Doppler indices are consistent with impaired relaxation (Stage I diastolic dysfunction). Right Ventricle: Normal right ventricular size. Normal right ventricular systolic function. Left Atrium: The left atrium is normal in size. Right Atrium: The right atrium is normal in size. Mitral Valve: Mild mitral leaflet calcification. Mild mitral annular calcification. Trace mitral regurgitation. Aortic Valve: No significant aortic stenosis or insufficiency. Aortic cusps appear mildly calcified. Tricuspid Valve: Normal appearance of the tricuspid valve. The estimated Peak RVSP is 19 mmHg. There is trace tricuspid regurgitation. Pericardium: Normal pericardium with no significant pericardial effusion. Aorta: Normal aortic root. IVC: Normal size and normal respiratory collapse consistent with normal right atrial pressure. Conclusions: Normal left ventricular systolic function. Normal left ventricular cavity size. Normal left ventricular wall thickness. Ejection fraction is visually estimated at 60 %. Tissue Doppler/Mitral Doppler indices are consistent with impaired relaxation (Stage I diastolic dysfunction). Mild mitral leaflet calcification. Mild mitral annular calcification. Trace mitral regurgitation. Normal appearance of the tricuspid valve. The estimated Peak RVSP is 19 mmHg. There is trace tricuspid regurgitation. Electronically Signed By: Edgar Thompson 2018-08-26 15:00:14 PDT
--- NOTE | 2018-08-26 15:08 | ECORPT ---
DATE OF SERVICE: 08/26/2018 CARDIAC STRESS TEST REFERRING PHYSICIANS: Drs. Gerri Srinivasan and Tin Thompson. REASON FOR ADMISSION: Chest pain. DESCRIPTION OF TEST: The patient was brought to heart station in fasting condition. Initial blood p ressure was 124/67. She tolerated the injection well. She developed some tachycardia with nonspecif ic ST-T changes but no brittany ischemia. The imaging portion of the report will be dictated separately . Dictated By: LAMONTE FORDE MD ML/NTS Conf#: [id number] DID#: [id number] CC: TIN THOMPSON MD; GERRI SRINIVASAN;*EndCC*
--- NOTE | 2018-08-26 16:52 | RADRPT ---
Vent Rate: 67 bpm RR Interval: 896 msec MT Interval: 133 msec QRS Duration: 84 msec QT Interval: 398 msec QTC Interval: 420 msec P-R-T [place]: 13 - 29 - 37 degrees Sinus rhythm...normal P axis, V-rate 50- 99 Electronically Signed By: Castillo Perez
== END 2018-08-26 15:30 | disposition home or self-care (01) ==
LOC: E/R 16:54 → 6WM 21:31
PROVIDERS: ADMIT Hospitalist; ATTEND Internal Medicine
DX: R07.9 Chest pain, unspecified (principal); E87.6 Hypokalemia; R51 Headache
CPT/HCPCS: 36415; 71045; 78452; 80048; 80053; 80061; 82550; 82553; 83036; 83735; 83880; 84100; 84439; 84443; 84484; 85025; 93005; 93017; 93306; A9500; A9505; J1644; J2270; J2405; J2785; Z7500; Z7502; Z7610; G0378

== ENCOUNTER → 2018-09-24 | Outpatient (CLI) | payer OTHER ==
[~2018-09-24] MED LIST changes: +IOHEXOL 100 ML ONE; +METOPROLOL 100 MG TAB ONE; +NITROGLYCERIN AEROSOL (4.9 GM) ONE; +SOD CHLORIDE 0.9% 100 ML ONE
== END | disposition home or self-care (01) ==
LOC: C/S 08:37
PROVIDERS: ATTEND Internal Medicine
DX: R94.39 Abnormal result of other cardiovascular function study (principal); R07.9 Chest pain, unspecified
CPT/HCPCS: 75571; 75574; Q9967; Z7610

== ENCOUNTER 2018-11-03 05:58 | Day surgery (SDC) | payer OTHER ==
[2018-11-03] VITALS (15 sets, daily range): BP systolic 110–129; BP diastolic 69–81; PULSE 56–81; RESP 12–79; Ht 154.9 cm; Wt 83.3 kg
[~2018-11-03] VITALS: Ht 154.9 cm; Wt 83.3 kg
[~2018-11-03 05:58] MED LIST changes: +CEFAZOLIN 2 GM/50 ML (PMX) 50 ML IVPB ONE; -IOHEXOL 100 ML ONE; -METOPROLOL 100 MG TAB ONE; +NITR0.4T32 SL; -NITROGLYCERIN AEROSOL (4.9 GM) ONE; +SOD CHLORIDE 0.9% 1,000 ML IV ONE; -SOD CHLORIDE 0.9% 100 ML ONE
[2018-11-03] MEDS ORDERED: LIDOCAINE 2% (SDV) 5 ML INJ ONE (07:10)
--- NOTE | 2018-11-03 07:15 | PREAC ---
Date/Time of Note Date/Time of Note DATE: 11/03/18 TIME: 07:14 Anesthesia Eval and Record Evaluation Time Pre-Procedure Interview DATE: 11/03/18 TIME: 07:14 Age 53 Sex female NPO: 8 hrs Preoperative diagnosis left back and leg mass Planned procedure excision of left back and leg mass Past Medical History Past Medical History: Includes Cardio: Arrythmia Musculoskeletal: Osteoarthritis GI: Obesity, Other (pud) Surgery & Anesthesia Issues No known issue Meds Anticoagulation: No Beta Nicole within 24 hr: No Reason Beta Nicole not given: Pt. not on B-Nicole Discontinued Reported Medications Ibuprofen* (Ibuprofen*) 600 Mg Tablet, 600 MG PO Q6H PRN for PAIN LEVEL 1-5, TAB 01/25/18 Current Medications Sodium Chloride 1,000 ml @ 75 mls/hr [id number] ONCE IV Last administered on 11/03/18at 06:40; Admin Dose 75 MLS/HR; Start 11/03/18 at 05:30; Stop 11/03/18 at 18:49 Meds reviewed: Yes Allergies Coded Allergies: No Known Allergies (Verified Allergy, Unknown, 11/03/18) Allergies Reviewed: Yes Labs/Studies Labs Reviewed: Reviewed by anesthesiologist test: Negative Studies: ECG, CXR, Other (cath) Pre-procedure Exam Last vitals Vital Signs Date Temp Pulse Resp B/P (MAP) Pulse Ox O2 O2 Flow FiO2 Time Delivery Rate 11/03/18 97.6 72 18 125/69 98 Room Air 06:41 (87) Airway: Adequate mouth opening, Adequate thyromental dist Mallampati: Mallampati II Teeth: Normal Lung: Normal Heart: Normal ASA Physical Status ASA physical status: 2 Emergency: None Planned Anesthetic General/MAC: LMA Planned Pain Management Parenteral pain med Pre-operative Attestations Prior to commencing anesthesia and surgery, the patient was re-evaluated, there was verification of: *The patient's identity *The results of appropriate recent lab work and preoperative vital signs *The above evaluation not changing prior to induction *Anesthetic plan, risk benefits, alternative and complications discussed with patient/family; questions answered; patient/family understands, accepts and wishes to proceed. NEGRA VIVAS Nov 03, 2018 07:15
[2018-11-03] MEDS ORDERED: BUPIVACAINE 0.25% (MPF) 30 ML INJ ONE (07:23)
[2018-11-03] MEDS ORDERED: PROPOFOL 100 ML ONE (07:40)
[2018-11-03] MEDS ORDERED: CEFAZOLIN 1 GM INJ ONE (07:48)
[2018-11-03] MEDS ORDERED: FENTAnyl 50 MCG/ML VIAL ONE (07:48)
[2018-11-03] MEDS ORDERED: ONDANSETRON 4 MG INJ ONE (07:49)
[2018-11-03] MEDS ORDERED: DEXAMETHASONE 4 MG/ML 5 ML INJ ONE (07:49)
--- NOTE | 2018-11-03 08:41 | PAC ---
Date/Time of Note Date/Time of Note DATE: 11/03/18 TIME: 08:41 Post-Anesthesia Notes Post-Anesthesia Note Last documented vital signs Vital Signs Date Temp Pulse Resp B/P (MAP) Pulse Ox O2 O2 Flow FiO2 Time Delivery Rate 11/03/18 97.6 72 18 125/69 98 Room Air 0841 (87) Activity: WNL Respiratory function: WNL Cardiovascular function: WNL Mental status: Baseline Pain reasonably controlled: Yes Hydration appropriate: Yes Nausea/Vomiting absent: Yes NEGRA VIVAS Nov 03, 2018 08:41
--- NOTE | 2018-11-03 08:50 | OPR ---
Date/Time of Note Date/Time of Note DATE: 11/03/18 TIME: 08:44 Operative Report Procedure Date: Nov 03, 2018 Preoperative Diagnosis left back mass left leg mass abdominal mass Postoperative Diagnosis same Operation/Procedure Performed 1. excision of left back tumor 5 cm mass 5 cm incision 2. localized adjacent tissue transfer with the use of skin flaps 10 sq cm defect of the back 3. excision of left posterior leg tumor 7 cm tumor 7 cm incision 4. localized adjacent tissue transfer with the use of skin flaps 14 sq cm defect of posterior left leg 5. excision of abdominal mass 6 cm tumor 6 cm incision 6. localized adjacent tissue transfer with the use of skin flaps 12 sq cm defect of abdomen 7. therapeutic injection of subcutaneous local anesthesia Surgeon see signature line Solder Deposit Operator none Anesthesia Type: general Estimated Blood Loss: 0 - 10 ml's Transfusion none Specimen Left back tumor left leg tumor abdominal tumor Grafts/Implants none Complications none Pt Condition Post Procedure: stable Indications This is a 53-year-old female with multiple tumors on her body. She requests surgical excision. Risks alternatives benefits and personnel were discussed the patient. Patient expressed understanding consents to the operation. Procedure Description Patient seen to the OR and prepped and draped in usual sterile fashion. Surgical timeout is performed. IV antibiotic given. Elliptical incision was made over the left back mass. Dissection cautery was carried onto the mass and the passive circumduction excised. Good hemostasis test. Due to tissue defect localized to [place] transfer with this skin flap was performed. Multilayer closure with interrupted 3-0 Vicryl and skin suzan. Therapy secondary to local anesthesia was injected at incision site. Attention was then paid to the left posterior leg mass. Little incision was made over the mass and the mass and circumflex excised using cautery. Good hemostasis status. Due to tissue defect localized patient is transferred with this is complex performed. Multilayer closed with interrupted Vicryl and skin suzan. There precipitates local anesthesia was injected that incision site. The surgical sites were then dressed and the patient had to be repositioned for the abdomen. A vertical incision made over the abdominal mass. Dissection cardiac stents area of the mass and the mass in circumference excised. Good hemostasis tabs. This incision defect localized patient just had cervical skin flaps performed. Multilayer closure with interrupted 3-0 Vicryl and skin suzan. There precipitate local anesthesia was injected at the incision site. Dry dressings were applied. Dina BAUER Nov 03, 2018 08:50
[2018-11-03] MEDS ORDERED: HYDROCODONE/APAP (5/325) TAB PO ONE (09:00)
[2018-11-03] MEDS ORDERED: MEPERIDINE 25 MG INJ IV PRN (09:00)
[2018-11-03] MEDS ORDERED: OXYCODONE/ACETAMINOPHEN (5/325) TAB PO PRN ×2 (09:00)
[2018-11-03] MEDS ORDERED: ONDANSETRON 4 MG INJ IV PRN (09:00)
[2018-11-03] MEDS ORDERED: MIDAZOLAM 1 MG/ML 2 ML INJ IV PRN (09:00)
[2018-11-03] MEDS ORDERED: ALBUTEROL 0.083% (NEB) 2.5 MG/3 ML AMP HHN PRN (09:00)
[2018-11-03] MEDS ORDERED: FENTAnyl 50 MCG/ML VIAL IV PRN ×3 (09:00)
[2018-11-03] MEDS ORDERED: EPHEDrine 25 MG/5 ML SYG IV PRN (09:00)
[2018-11-03] MEDS ORDERED: DIPHENHYDRAMINE 50 MG INJ IV PRN (09:00)
[2018-11-03] MEDS ORDERED: METOCLOPRAMIDE 10 MG INJ IV PRN (09:00)
[2018-11-03] MEDS ORDERED: hydrALAzine 20 MG INJ IV PRN (09:00)
[2018-11-03] MEDS ORDERED: LABETALOL HCL 20MG INJ IV PRN (09:00)
[2018-11-03] MEDS ORDERED: KETOROLAC 30 MG INJ IV PRN (09:00)
== END 2018-11-03 11:15 | disposition home or self-care (01) ==
LOC: SDS 05:58
PROVIDERS: ATTEND Surgery
DX: D17.24 Benign lipomatous neoplasm of skin and subcutaneous tissue of left leg (principal); D17.1 Benign lipomatous neoplasm of skin and subcutaneous tissue of trunk
CPT/HCPCS: 14001; 14021; J0690; J1100; J2405; J3010; Z7512; Z7610; 88307